=== PATIENT | female | born 1985 | race African-American/Black ===

== ENCOUNTER 2019-04-08 17:08 | Emergency (ER) | payer SELFPAY ==
[~2019-04-08] VITALS: Ht 149.9 cm; Wt 49.0 kg
[~2019-04-08 17:08] MED LIST: ACET-787 PO
--- NOTE | 2019-04-08 17:19 | NUR ---
PATIENT BIB EMS TO BED 9 AT THIS TIME.
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
[2019-04-08 17:27] VITALS: BP 109/62
--- NOTE | 2019-04-08 17:27 | NUR ---
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
--- NOTE | 2019-04-08 17:27 | NUR ---
ASKED DR SPENCE IF NEED TO CALL POISON CONTROL, DR SPENCE SAID NO
--- NOTE | 2019-04-08 17:46 | NUR ---
PT AMB TO RESTROOM
--- NOTE | 2019-04-08 17:50 | NUR ---
PT FOUND DEFACATING ON FLOOR IN PT ROOM. ADVISED TO USE RESTROOM. ASSISTED TO THE BATHROOM. EVS CALLED.
--- NOTE | 2019-04-08 18:30 | NUR ---
PT NOW YELLING, AGITATED, INCOHERENT STATEMENTS WHILE DR SPENCE AT BEDSIDE
--- NOTE | 2019-04-08 18:30 | NUR ---
DR SPENCE AT BEDSIDE
[2019-04-08 18:32] VITALS: BP 121/67
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
--- NOTE | 2019-04-08 18:59 | NUR ---
PT CALM AT BEDSIDE. ALERT AND AWAKE AND ORIENTED. ANSWERING QUESTIONS APPROPRIATELY.
[2019-04-08 19:03] LABS: BARBITURATE, URINE NEG. ng/ml (NEG <=200); BENZODIAZEPINE, URINE NEG. ng/mL (NEG <=200); CANNABINOID, URINE POS. ng/mL (NEG <=50); COCAINE, URINE NEG. ng/mL (NEG <=300); OPIATE, URINE POS. ng/mL (NEG <=2000); PHENCYCLIDINE SCREEN,URINE NEG. ng/mL (NEG <=25)
--- NOTE | 2019-04-08 19:09 | NUR ---
REPORT GIVEN TO DOMI TRUJILLO, TRANSFER OF CARE AT THIS TIME
--- NOTE | 2019-04-08 19:15 | NUR ---
RECEIVED REPORT FROM AM NURSE, PT WENT OUTSIDE OF ROOM, PT STATING "I WANT TO GO HOME." PT WALKING AROUND UNIT AND NURSING STATION. PT REFUSING TO RETURN TO BED DESPITE EDUCATION. EXPLAINED TO PT THAT [place] [employer] IS ON THE WAY TO SPEAK WITH HER. PT REFUSED TO WAIT. PT IS AOX4, AMBULATORY, IN STABLE CONDITION.
--- NOTE | 2019-04-08 19:20 | NUR ---
PATIENT ELOPED FROM FACILITY. DISCHARGE INSTRUCTIONS NOT GIVEN TO PATIENT. DR. GRAVES NOTIFIED.
--- NOTE | 2019-04-08 19:21 | NUR ---
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
== END 2019-04-08 19:20 | disposition left against medical advice (07) ==
LOC: MED 17:08
DX: T39.1X5A Adverse effect of 4-Aminophenol derivatives, initial encounter (principal); T43.625A Adverse effect of amphetamines, initial encounter; R45.1 Restlessness and agitation; F17.200 Nicotine dependence, unspecified, uncomplicated; Z79.899 Other long term (current) drug therapy; Y92.89 Other specified places as the place of occurrence of the external cause
CPT/HCPCS: 80305; 81002; 81025; 99283

== ENCOUNTER 2019-04-11 23:27 | Emergency (ER) | payer SELFPAY ==
[~2019-04-11] VITALS: Ht 157.5 cm; Wt 90.0 kg
[2019-04-11 23:28] VITALS: BP 102/75
--- NOTE | 2019-04-11 23:35 | NUR ---
ALOC FOUND NAKED IN FRONT OF RESIDENCE PER EMS. REFUSING TO ANSWER QUESTIONS ABOUT DRUG OR ALCOHOL CONSUMPTION.
--- NOTE | 2019-04-11 23:43 | NUR ---
ATTEMPTED TO DRAW LABS, PATIENT COMBATIVE. ERMD INFORMED.
[2019-04-11] MEDS ORDERED: LORazepam 2 MG/ML VIAL IM ONE (23:45)
[2019-04-11] MEDS ORDERED: HALOPERIDOL IM 5 MG/ML VIAL IM ONE (23:45)
[2019-04-11] MEDS ORDERED: diphenhydrAMINE 50 MG/ML VIAL IM ONE (23:45)
[2019-04-11 23:54] LABS: APPEARANCE,URINE HAZY (CLEAR); BILIRUBIN,URINE NEGATIVE (NEGATIVE); BLOOD, URINE NEGATIVE (NEGATIVE); COLOR,URINE YELLOW (YELLOW); LEUKOCYTE ESTERASE ,URINE NEGATIVE (NEGATIVE); NITRITE, URINE NEGATIVE (NEGATIVE); UGLUCOSE NEGATIVE (NEGATIVE)
--- NOTE | 2019-04-12 | NUR ---
patient refusing IV at this time.
[2019-04-12 00:02] LABS: RBC,URINE 0-5 /HPF (0-5); WBC,URINE 0-5 /HPF (0-5)
[2019-04-12 00:04] LABS: BARBITURATE, URINE NEG. ng/ml (NEG <=200); BENZODIAZEPINE, URINE NEG. ng/mL (NEG <=200); CANNABINOID, URINE POS. ng/mL (NEG <=50); COCAINE, URINE NEG. ng/mL (NEG <=300); OPIATE, URINE NEG. ng/mL (NEG <=2000); PHENCYCLIDINE SCREEN,URINE NEG. ng/mL (NEG <=25)
[2019-04-12] MEDS ORDERED: NACL 0.9% 1,000 ML IV ONE (00:05)
--- NOTE | 2019-04-12 01:30 | NUR ---
CALLED PATIENTS MOTHER, NO ANSWER. LEFT MESSAGE LEFT CALL BACK NUMBER.
--- NOTE | 2019-04-12 02:55 | NUR ---
PATEINT SLEEPING IN BED. ARROUSABLE TO VOICE, NO NEEDS STATED.
--- NOTE | 2019-04-12 04:00 | NUR ---
SPOKE WITH PATIENTS MOTHER, AMBROSIO FROM CONTACT LISTED IN CHART. STATES SHE WILL NOT BE AVAILABLE TO PICK HER UP UNTIL 6AM.
--- NOTE | 2019-04-12 05:24 | NUR ---
PATIENTS MOTHER ARRIVED. PATIENT GETTING DRESSED. AWAITING D/C PAPERWORK.
[2019-04-12 05:26] VITALS: BP 102/75
--- NOTE | 2019-04-12 05:26 | NUR ---
Patient discharged with v/s stable. Written and verbal after care instructions given and explained. Patient verbalized understanding. Ambulatory with steady gait. All questions addressed prior to discharge. Advised to follow up with PMD.
== END 2019-04-12 05:26 | disposition home or self-care (01) ==
LOC: MED 23:27
DX: R41.82 Altered mental status, unspecified (principal); R46.89 Other symptoms and signs involving appearance and behavior; Z79.891 Long term (current) use of opiate analgesic
CPT/HCPCS: 80305; 81001; 96372; 99283; J1200; J1630; J2060